=== PATIENT | male | born 1990 | race Two or more races ===

== ENCOUNTER 2017-09-16 04:03 | Emergency (ER) | payer MEDICAID ==
[~2017-09-16] VITALS: Ht 180.3 cm; Wt 90.7 kg
[2017-09-16 04:12] VITALS: BP 153/91
[2017-09-16] MEDS ORDERED: Tetanus/Diptheria/Pertussis Vaccine 0.5ml Syr IM ONE (04:15)
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
[2017-09-16] MEDS ORDERED: Lidocaine 1% 10mg/ml/Epi 0.005mg/ml 10ml vial INJ ONE (04:30)
[2017-09-16] MEDS ORDERED: AMOXICILLIN500 MG ORAL (06:53)
[2017-09-16] MEDS ORDERED: TYLENOL325 MG ORAL (06:53)
[2017-09-16] MEDS ORDERED: BACITRACIN15 GM TOPIC (06:53)
[2017-09-16 07:00] VITALS: BP 136/88
[2017-09-16 07:05] VITALS: BP 136/88
--- NOTE | 2017-09-16 10:21 | Diagnostic Imaging Report ---
Indication: Head trauma. Headache Technique: Contiguous 5 mm thick transaxial imaging of the head obtained in a Siemens Sensation [address] scanner. Soft tissue and bone windows generated. Total Dose length Product (DLP): [address] Dose Index Volume (CTDIvol): 70.38, 0.15 mGy Comparison: none Findings: The size and configuration of the cortical sulci, basal cisterns, and ventricles are within normal limits for age. There is no mass effect, midline shift, or edema identified. There is no evidence of acute hemorrhage or abnormal intra-axial or extra-axial fluid collections. The bones and soft tissues are unremarkable. There is mucosal thickening within the left maxillary sinus. The study is significantly degraded by motion. Impression: No obvious mass effect, edema or acute bleed. Study is markedly degraded by motion. Are sharp The CT scanner at [facility] is accredited by the [employer] and the scans are performed using dose optimization techniques as appropriate to a performed exam including Automatic Exposure control.
--- NOTE | 2017-09-16 10:34 | Diagnostic Imaging Report ---
Indication: Neck pain. Technique: Continuous helical imaging of the cervical spine was obtained transaxially from the skull base to the upper thoracic spine. 2-D coronal and sagittal reformatted images were obtained. Total Dose length Product (DLP): [address] Dose Index Volume (CTDIvol): 22 mGy Comparison: None Findings: There is air motion artifact that limits evaluation to the extent that the study is essentially nondiagnostic. Significant fractures may be missed easily on this exam. Alignment is also not assessable. Impression: Nondiagnostic study.. The CT scanner at [facility] is accredited by the [employer] and the scans are performed using dose optimization techniques as appropriate to a performed exam including Automatic Exposure control.
== END 2017-09-16 07:05 | disposition home or self-care (01) ==
LOC: EDBD 04:03 → EMR 04:22
DX: S01.511A Laceration without foreign body of lip, initial encounter (principal); S09.8XXA Other specified injuries of head, initial encounter; S00.03XA Contusion of scalp, initial encounter; Y04.2XXA Assault by strike against or bumped into by another person, initial encounter; Y92.89 Other specified places as the place of occurrence of the external cause; Z23 Encounter for immunization; F10.129 Alcohol abuse with intoxication, unspecified; M54.2 Cervicalgia; R51 Headache
CPT/HCPCS: 12011; 70450; 72125; 90471; 90715; 99284; Z7502